=== PATIENT | female | born 1995 | race Two or more races ===

== ENCOUNTER 2019-03-07 08:41 | Emergency (ER) | payer BC ==
--- OUTSIDE RECORDS SUMMARY | 2019-03-07 08:52 | XMS REPORT | Summary of Care ---
:1995 Author Organization [facility] Address [address] [facility] [place] [address] Care Team Providers Name Role Phone Jaelyn Mclaughlin MD Primary Care Provider Reason for Visit Reason Comments Gynecologic Exam Encounter Details Date Type Department Care Team Description 01/07/2019 Office Visit [place] [facility] Jaelyn Mclaughlin MD Hormonal disorder (Primary Dx); Medicine [address] Screening for cervical cancer; [address] [facility] Hypervitaminosis D; [place] [phone] Dyslipidemia [phone] Allergies No Known Allergiesdocumented as of this encounter (statuses as of 01/10/2019) Medications No known medicationsdocumented as of this encounter (statuses as of 01/10/2019) Active Problems Problem Noted Date Functional bowel disorder 05/31/2015 PFS (patellofemoral syndrome) 12/25/2014 Acne vulgaris 12/25/2014 documented as of this encounter (statuses as of 01/10/2019) Resolved Problems Problem Noted Date Resolved Date Absence of menstruation 12/25/2014 06/13/2016 documented as of this encounter (statuses as of 01/10/2019) Immunizations Name Administration Dates Next Due MENINGOCOCCAL CONJUGATE VACCINE 11/10/2015 documented as of this encounter Social History Tobacco Use Types Packs/Day Years Used Date Never Smoker Smokeless Tobacco: Never Used Alcohol Use Drinks/Week oz/Week Comments No 0 Standard drinks or equivalent 0.0 Sex Assigned at Date Recorded Not on file Job Start Date Occupation Industry Not on file Not on file Not on file Travel History Travel Start Travel End No recent travel history available. documented as of this encounter Last Filed Vital Signs Vital Sign Reading Time Taken Comments Blood Pressure 100/60 01/07/2019 11:39 AM EDT Pulse - - Temperature - - Respiratory Rate - - Oxygen Saturation - - Inhaled Oxygen Concentration - - Weight 73.8 kg (162 lb 9.6 oz) 01/07/2019 11:39 AM EDT Height - - Body Mass Index 25.47 12/04/2018 11:29 AM EDT documented in this encounter Progress Notes Jaelyn Mclaughlin MD - 01/07/2019 11:00 AM EDT Name: Magui Toure : 1995 Date of Service: 01/07/2019 Chief Complaint Patient presents with Gynecologic Exam SUBJECTIVE: Magui Toure is a 23-y.o. 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 No current facility-administered medications for this visit. Patient Active Problem List Diagnosis PFS (patellofemoral syndrome) Acne vulgaris Functional bowel disorder Past Medical History: Diagnosis Date Acne History of anabolic steroid use Patellofemoral syndrome Plantar warts 2015 Secondary amenorrhea No past surgical history on file. Social History Tobacco Use Smoking status: Never Smoker Smokeless tobacco: Never Used Substance Use Topics Alcohol use: No Alcohol/week: 0.0 standard drinks Drug use: No Social History Social History Narrative College student studying physical therapy. Exercises regularly; formerly, an avid competitive runner in high school No Known Allergies Review of Systems: All remaining review of systems was negative except for as noted in the history of present illness/subjective. OBJECTIVE: Vitals: 01/07/19 1139 BP: 100/60 BP Location: Left arm Patient Position: Sitting Weight: 162 lb 9.6 oz (73.8 kg) Physical Exam: General appearance - WN WD comfortable Mental status - appropriate affect & mood Neck - No cervical or supraclavicular adenopathy Chest/Lungs - clear to auscultation, no wheezes, rales or rhonchi, symmetric air entry Heart - regular at 48 Abdomen - soft, nontender, nondistended, no masses or organomegaly Breasts - breasts appear normal, no suspicious masses, no skin or nipple changes or axillary nodes Pelvic - vulva normal; vaginal mucosa is hyperemic and irritated in appearance; cervix is benign Extremities - dorsalis pedis pulses palpable; no significant edema ASSESSMENT:/PLAN: ICD-9-CM ICD-10-CM 1. Hormonal disorder 259.9 E34.9 ESTRADIOL CBC WITH DIFFERENTIAL THYROID STIMULATING HORMONE FREE T4 TESTOSTERONE, TOTAL T3, FREE ESTROGEN TOTAL DHEA SULFATE (DEHYDROEPIANDROSTERONE) 2. Screening for cervical cancer V76.2 Z12.4 PAP SMEAR THINPREP W/ REFLEX HPV 3. 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 Dyslipidemia 272.4 E78.5 HDL CHOLESTEROL COMPREHENSIVE METABOLIC PANEL Follow up for repeat lab pending these results If trending back to normal, no endocrinology consult needed Author: Jaelyn Mclaughlin MD 01/10/2019 22:09 documented in this encounter Plan of Treatment Name Type Priority Associated Diagnoses Date/Time ESTROGEN TOTAL Lab Routine Hormonal disorder 01/07/2019 12:39 PM EDT DHEA SULFATE Lab Routine Hormonal disorder 01/07/2019 12:39 PM EDT (DEHYDROEPIANDROSTERONE ) PAP SMEAR THINPREP W/ Lab Routine Screening for cervical 01/07/2019 1:40 PM EDT REFLEX HPV cancer Health Maintenance Due Date Last Done Comments PAP SMEAR 1995 HPV IMMUNIZATION SERIES (1 - 2012 Female 3-dose series) INFLUENZA VACCINE (#1) 2019 DEPRESSION SCREENING 12/05/2019 12/04/2018 MENINGOCOCCAL VACCINE IMM Completed 11/10/2015 PNEUMOCOCCAL 0-64 YRS Aged Out No longer eligible based on patient's age to complete this topic documented as of this encounter Procedures Procedure Name Priority Date/Time Associated Diagnosis Comments T3, FREE Routine 01/07/2019 12:39 Hormonal disorder Results for this PM EDT procedure are in the results section. CBC WITH DIFFERENTIAL Routine 01/07/2019 12:39 Hormonal disorder Results for this PM EDT procedure are in the results section. VITAMIN D 25 HYDROXY Routine 01/07/2019 12:39 Hypervitaminosis D Results for this ([facility]) PM EDT procedure are in the results section. THYROID STIMULATING Routine 01/07/2019 12:39 Hormonal disorder Results for this HORMONE PM EDT procedure are in the results section. TESTOSTERONE, TOTAL Routine 01/07/2019 12:39 Hormonal disorder Results for this PM EDT procedure are in the results section. HDL CHOLESTEROL Routine 01/07/2019 12:39 Dyslipidemia Results for this PM EDT procedure are in the results section. FREE T4 Routine 01/07/2019 12:39 Hormonal disorder Results for this PM EDT procedure are in the results section. ESTRADIOL Routine 01/07/2019 12:39 Hormonal disorder Results for this PM EDT procedure are in the results section. COMPREHENSIVE Routine 01/07/2019 12:39 Dyslipidemia Results for this METABOLIC PANEL PM EDT procedure are in the results section. documented in this encounter Results COMPREHENSIVE METABOLIC PANEL (01/07/2019 12:39 PM EDT) [facility] Signature Sodium 140 134 - 145 mmol/L [facility] Potassium 4.6 3.5 - 5.1 mmol/L [facility] Chloride 100 98 - 107 mmol/L [facility] CO2 26 22 - 30 mmol/L [facility] Calcium 10.1 8.3 - 10.1 mg/dl [facility] Albumin 5.2 (H) 3.5 - 5.0 g/dl [facility] BUN 27 (H) 7 - 17 mg/dl [facility] Creatinine 0.7 0.7 - 1.2 mg/dl [facility] Glucose 87 70 - 99 mg/dl [facility] Total Protein 8.4 (H) 6.3 - 8.2 g/dl [facility] Total Bilirubin 0.2 0.0 - 1.1 MG/DL [facility] AST 70 (H) 15 - 46 U/L [facility] ALT 89 (H) 9 - 52 U/L [facility] Alkaline 63 40 - 150 U/L [facility] Phosphatase [facility] eGFR >60 See Interpretation [facility] Comment: Below ml/min/1.73ml GROUP Sq [facility] Estimated GFR Interpretation: Above 60ml/min/1.73m2 = Normal Renal Function 30-59 ml/min/1.73m2 = Stage 3 Chronic Kidney Disease 15-29 ml/min/1.73m2 = Stage 4 Chronic Kidney Disease Less than 15 ml/min/1.73m2 = Stage 5 Chronic Kidney Disease The GFR value is calculated using the Modification of Diet in Renal Disease ( MDRD) Study Equation which can be found at: https://www.kidney.org/content/xcqn-rnukc-qnmfedhr BUN/Creatinine 39 (H) 6 - 22 RATIO [facility] Anion Gap 14 (H) 3 - 11 mmol/L [facility] A/G Ratio 1.6 0.8 - 2.0 ratio [facility] Specimen Blood Performing Organization Address [facility] [place] Phone Number [facility] [address] [place] [address] T3, FREE (01/07/2019 12:39 PM EDT) T3,Free 3.27 2.27 - 6.16 pg/ml [facility] Specimen Blood Performing Organization Address [facility] [place] Phone Number [facility] [address] [place] [address] TESTOSTERONE, TOTAL (01/07/2019 12:39 PM EDT) Testosterone 19 14 - 76 NG/DL [facility] Specimen Blood Performing Organization Address [facility] [place] Phone Number [facility] [address] [place] [address] [phone] VITAMIN D 25 HYDROXY ([facility]ELLINE) (01/07/2019 12:39 PM EDT) Vitamin D 25 HYDROXY 83.4 32.0 - 100.0 [facility] ng/ml LABORATORY Specimen Blood Narrative Performed At Interpretation: [facility] <20 ng/ml Deficiency 20-<30 ng/ml Insufficiency 32-100 ng/ml Sufficiency >100 ng/ml Potential Toxicity Performing Organization Address [facility] [place] Phone Number [facility] [address] [place] [address] [phone] HDL CHOLESTEROL (01/07/2019 12:39 PM EDT) HDL Cholesterol 48 (L) >50 mg/dl [facility] Specimen Blood Performing Organization Address [facility] Phone Number [facility] [address] [place] [phone] FREE T4 (01/07/2019 12:39 PM EDT) Free T4 0.7 (L) 0.8 - 2.2 NG/DL [facility] Specimen Blood Performing Organization Address [facility] [place] Phone Number [facility] [address] [place] [address] THYROID STIMULATING HORMONE (01/07/2019 12:39 PM EDT) TSH 1.42 0.47 - 4.68 uIu/ml [facility] Specimen Blood Performing Organization Address [facility] [place] Phone Number [facility] [address] [place] [address] [phone] CBC WITH DIFFERENTIAL (01/07/2019 12:39 PM EDT) WBC Count 4.86 3.98 - 10.04 [facility] K/uL LABORATORY RBC Count 4.81 3.93 - 5.22 M/UL [facility] Hemoglobin 15.9 (H) 11.2 - 15.7 g/dL [facility] Hematocrit 48.3 (H) 34.1 - 44.9 % [facility] MCV 100.4 (H) 79.4 - 94.8 FL [facility] MCH 33.1 (H) 25.6 - 32.2 PG [facility] MCHC 32.9 32.2 - 35.5 g/dL [facility] Platelet Count 259 182 - 369 K/uL [facility] MPV 11.5 9.4 - 12.3 FL [facility] RDW 12.0 11.7 - 14.4 % [facility] Neutrophil % 64.3 34.0 - 71.1 % [facility] Lymphocyte % 22.8 19.3 - 51.7 % [facility] Monocyte % 10.5 4.7 - 12.5 % [facility] Eosinophil % 1.2 0.7 - 5.8 % [facility] Basophil % 0.6 0.1 - 1.2 % [facility] nRBC % 0.0 0.0 - 0.2 % [facility] Neutrophil # 3.12 1.56 - 6.13 K/UL [facility] Lymphocyte # 1.11 (L) 1.18 - 3.74 K/UL [facility] Monocyte # 0.51 0.24 - 0.86 K/UL [facility] Eosinophil # 0.06 0.04 - 0.36 K/UL [facility] Basophil # 0.03 0.01 - 0.08 K/UL [facility] Immature Gran % 0.6 (H) 0.0 - 0.4 % [facility] Immature Gran # 0.03 0.00 - 0.03 K/uL [facility] NRBC # 0.00 0.00 - 0.12 K/uL [facility] Specimen Blood Performing Organization Address [facility] Phone Number [facility] [address] [phone] ESTRADIOL (01/07/2019 12:39 PM EDT) Estradiol 23 See Estradiol [facility] Interpretation pg/ml LABORATORY Specimen Blood Narrative Performed At Estradiol Interpretation [facility] Phase Range (pg/ml) Follicular Phase 19-83 Mid Cycle 150-528 Luteal Phase 58-157 Postmenopausal 0-31 Prepubertal Children Reference range: < 25pg/ml* (*The Brenna Vincent Handbook 19th edition Page 266) Performing Organization Address [facility] Phone Number [facility] [address] [address] [phone] documented in this encounter Visit Diagnoses Diagnosis Hormonal disorder - Primary Unspecified endocrine disorder Screening for cervical cancer Screening for malignant neoplasm of the cervix Hypervitaminosis D Dyslipidemia Other and unspecified hyperlipidemia documented in this encounter Guarantor Name Account Type Relation to Date of Phone Billing Address Patient Magui Toure Personal/Family 1995 [address] ([address]) [address] [phone] [place], [place] (Work) [id number] documented as of this encounter
[2019-03-07 10:18] VITALS: BP 0/0
--- NOTE | 2019-03-07 11:07 | ED ---
Lower Extremity - HPI Summary HPI Summary: This patient is a 23-year-old female presenting to the ED with right toe injury. Patient states she dropped a 45 pound weight on her right toe yesterday. She has remained ambulatory, however with discomfort. There is slight discoloration over the dorsum of the toe without radiation of pain to the dorsum of the foot. Patient is able to flex and extend at the toe. No nailbed involvement. He denies any other symptoms. Denies any bleeding from the area. - History of Current Complaint Chief Complaint: EDExtremityLower Stated Complaint: POSS BROKEN TOE PER PT Time Seen by Provider: 03/07/19 08:52 Hx Obtained From: Patient Onset of Pain: Minutes Onset/Duration: Minutes Severity Initially: Mild Severity Currently: Mild Pain Intensity: 5 Pain Scale Used: 0-10 Numeric Location: Is Discrete @ - right great toe pain Associated Signs And Symptoms: Positive: Bruising. Negative: Swelling, Redness , Fever, Weakness Aggravating Factor(s): Standing, Ambulation Alleviating Factor(s): Rest Able to Bear Weight: Yes - Risk Factors Gout Risk Factors: Negative - Allergies/Home Medications Allergies/Adverse Reactions: Allergies Allergy/AdvReac Type Severity Reaction Status Date / Time No Known Allergies Allergy Verified 03/07/19 08:46 Home Medications: Home Medications NK [No Home Medications Reported] 03/07/19 [History Confirmed 03/07/19] PMH/Surg Hx/FS Hx/Imm Hx Previously Healthy: Yes Musculoskeletal History: Denies: Hx Rheumatoid Arthritis, Hx Osteoporosis - Immunization History Hx Pertussis Vaccination: No Immunizations Up to Date: Yes Infectious Disease History: No Infectious Disease History: Denies: Traveled Outside the [place] in Last 30 Days - Family History Known Family History: Positive: Other - Cerumen build up - Social History Occupation: Employed Full-time Lives: With Family Alcohol Use: None Hx Substance Use: No Substance Use Type: Reports: None Hx Tobacco Use: No Smoking Status (MU): Never Smoked Tobacco Review of Systems Negative: Fever, Chills, Fatigue, Skin Diaphoresis Negative: Palpitations, Chest Pain Negative: Shortness Of Breath, Cough Genitourinary: Negative Positive: no symptoms reported, see HPI Positive: Arthralgia - right great toe pain Positive: Bruising Neurological: Negative All Other Systems Reviewed And Are Negative: Yes Physical Exam Triage Information Reviewed: Yes Vital Signs On Initial Exam: Initial Vitals Temp Pulse Resp BP Pulse Ox 97.8 F 70 14 122/67 99 03/07/19 08:43 03/07/19 08:43 03/07/19 08:43 03/07/19 08:43 03/07/19 08:43 Vital Signs Reviewed: Yes Appearance: Positive: Well-Appearing, Well-Nourished Skin: Positive: Warm, Skin Color Reflects Adequate Perfusion, Other - ecchymosis to the dorsum of the R great toe Neck: Positive: Supple, No Lymphadenopathy Respiratory/Lung Sounds: Positive: Clear to Auscultation Cardiovascular: Positive: RRR, Pulses are Symmetrical in both Upper and Lower Extremities Musculoskeletal: Positive: Strength/ROM Intact, Other - right great toe pain without limitations Neurological: Positive: Speech Normal Procedures - Sedation Patient Received Moderate/Deep Sedation with Procedure: No Diagnostics - Vital Signs Vital Signs Temp Pulse Resp BP Pulse Ox 03/07/19 10:16 0 F 0 16 0/0 0 03/07/19 08:43 97.8 F 70 14 122/67 99 - Laboratory Lab Statement: Any lab studies that have been ordered have been reviewed, and results considered in the medical decision making process. Lower Extremity Course/Dx - Course Course Of Treatment: Patient is evaluated for right great toe injury. She states she injured the toe last night after she dropped a 45 pound weight over the area. She endorses bruising without radiation of pain. Toe x-ray obtained which shows no acute fractures. Patient is able to dorsiflex and plantarflex at the toe. Denies any pain to the dorsum of the foot. Denies any pain to the ankle. Patient remains ambulatory, however with discomfort. Patient is diagnosed with contusion. - Diagnoses Differential Diagnosis/HQI/PQRI: Positive: Sprain, Strain Provider Diagnoses: Toe contusion Discharge ED - Sign-Out/Discharge Documenting (check all that apply): Patient Departure - Discharge Plan Condition: Stable Disposition: HOME Patient Education Materials: Contusion in Adults (ED) Referrals: Jaelyn Mclaughlin MD [Primary Care Provider] - Additional Instructions: Ibuprofen 600mg three times daily as needed for pain - Billing Disposition and Condition Condition: STABLE Disposition: Home
== END 2019-03-07 10:14 | disposition home or self-care (01) ==
LOC: ED 08:41
DX: S90.111A Contusion of right great toe without damage to nail, initial encounter (principal); W20.8XXA Other cause of strike by thrown, projected or falling object, initial encounter; Y92.9 Unspecified place or not applicable
CPT/HCPCS: 99282